=== PATIENT | female | born 1970 | race Caucasian/White ===

== ENCOUNTER 2018-07-27 18:53 | Emergency (ER) | payer SELFPAY ==
[~2018-07-27] VITALS: Ht 157.5 cm; Wt 87.4 kg
[2018-07-27 19:08] VITALS: BP 180/81; PULSE 80; RESP 18; Ht 157.5 cm; Wt 87.4 kg
== END 2018-07-27 21:53 | disposition left against medical advice (07) ==
LOC: FTE 18:53
DX: Z53.21 Procedure and treatment not carried out due to patient leaving prior to being seen by health care provider (principal)